=== PATIENT | female | born 2000 | race Two or more races ===

== ENCOUNTER 2023-05-17 16:29 | Emergency (ER) | payer MEDICAID ==
[~2023-05-17] VITALS: Ht 172.7 cm; Wt 100.0 kg
[2023-05-17 17:07] VITALS: BP 149/100; PULSE 102; RESP 16; TEMP 98; O2SAT 96
[2023-05-17] MEDS ORDERED: DEXT60TA4 PO ×3 (17:24→17:57)
[2023-05-17] MEDS ORDERED: FEXO-42 PO ×3 (17:24→17:57)
[2023-05-17] MEDS ORDERED: DexAMETHasone SOD PHOS 10MG/1ML VIAL INJ IM ONE (17:30)
== END 2023-05-17 17:25 | disposition home or self-care (01) ==
LOC: ER 16:29
DX: J06.9 Acute upper respiratory infection, unspecified (principal)
CPT/HCPCS: 96372; 99283; J1100